=== PATIENT | female | born 1970 | race Caucasian/White ===

== ENCOUNTER 2016-09-14 10:24 | Emergency (ER) | payer BC, OTHER ==
[2016-09-14] MEDS ORDERED: SODIUM CHLORIDE 0.9% 1,000 ML ONE (10:43)
[2016-09-14 11:03] LABS: BASO # 0.1 K/mm3 (0.0-0.2); BASO % 0.6 % (0.2-1.0); EOS # 0.3 (0.0-0.5); EOS % 2.7 % (0.9-2.9); HEMATOCRIT 46.8 % (37.0-47.0); IMM NEUT% 0.3 % (0-1); LYMPH # 3.6 (1.0-4.8); LYMPH % 36.7 % (15-45); MEAN CELL VOLUME 90.7 fl (81.0-99.0); MEAN CORPUSCULAR HGB CONC 34.2 g/dl (33.0-37.0); MEAN PLATELET VOLUME 9.5 fl (7.4-10.4); MONO # 0.8 (0.0-0.8); MONO % 8.1 % (4-12); NEUT % 51.6 % (43-75); PLATELET COUNT 436 K/mm3 (130-400)
[2016-09-14 11:16] LABS: ALB/GLOB RATIO 1.4 (>1.0); ALBUMIN 4.4 gm/dL (3.5-5.7)
[2016-09-14 11:18] LABS: TROPONIN I < 0.01 ng/ml (0.0-0.06)
== END 2016-09-14 13:24 | disposition home or self-care (01) ==
LOC: ED 10:24
DX: I10 Essential (primary) hypertension (principal); R11.0 Nausea; R00.0 Tachycardia, unspecified
CPT/HCPCS: 85025; 82553; 80053; 84443; 84484; 99283 ×2; 96360; 93005; J7030